=== PATIENT | female | born 1985 ===

== ENCOUNTER 2017-05-07 19:12 | Emergency (ER) | payer OTHER ==
[2017-05-07 19:37] VITALS: BMI 23.7
[2017-05-07 19:43] VITALS: TEMP 99.4
--- NOTE | 2017-05-07 20:22 | ED PDOC ---
Arrival/HPI - General Chief Complaint: Substance Abuse Time Seen by Provider: 05/07/17 20:14 Historian: Patient - History of Present Illness Narrative History of Present Illness (Text): 05/07/17 20:15 31-year-old female presents today brought in by ambulance for heroin overdose. Patient states she used 4 bags of heroin today. Per EMS patient was given intranasal Narcan in the field. pt denies any complaints. states she hasnt used heroin in a week until today. no fever/chills. no abdominal pain. no other complaints. Past Medical History - Provider Review Nursing Documentation Reviewed: Yes - Travel History Have you recently traveled outside [place] w/in the past 3 mons?: No - Infectious Disease Hx of Infectious Diseases: None - Tetanus Immunization Tetanus Immunization: Unknown - Past Medical History Past Medical History: No Previous - Pulmonary Hx Respiratory Disorders: Yes Hx Bronchitis: Yes (11/2013) - Psychiatric Hx Depression: No Hx Emotional Abuse: No Hx Physical Abuse: No Hx Substance Use: Yes (smoker) - Past Surgical History Past Surgical History: No Previous - Surgical History Hx Tonsillectomy: Yes - Anesthesia Hx Anesthesia: Yes Hx Anesthesia Reactions: No Hx Malignant Hyperthermia: No - Suicidal Assessment Feels Threatened In Home Enviroment: No Family/Social History - Physician Review Nursing Documentation Reviewed: Yes Family/Social History: Unknown Family HX Smoking Status: Current Some Days Smoker Hx Alcohol Use: Yes Hx Substance Use: Yes (smoker) Hx Substance Use Treatment: Yes Allergies/Home Meds Allergies/Adverse Reactions: Allergies No Known Allergies Allergy (Verified 11/27/13 16:45) Home Medications: Home Meds Medication Instructions Recorded Confirmed No Known Home Med [No Known Home 07/16/14 07/16/14 Med] Review of Systems - Review of Systems Constitutional: absent: Fatigue, Fevers Respiratory: absent: SOB, Cough, Sputum Cardiovascular: absent: Chest Pain, Palpitations Gastrointestinal: absent: Abdominal Pain, Nausea, Vomiting Genitourinary Female: absent: Dysuria Musculoskeletal: absent: Arthralgias, Back Pain, Neck Pain Skin: absent: Rash, Pruritis Neurological: absent: Headache, Dizziness Psychiatric: absent: Anxiety, Depression, Suicidal Ideation Physical Exam Vital Signs Reviewed: Yes Vital Signs Temp Pulse Resp BP Pulse Ox 05/07/17 20:38 80 20 141/91 H 100 05/07/17 19:15 99.4 F 122 H 16 139/99 H 98 Temperature: Afebrile Blood Pressure: Normal Pulse: Tachycardic Respiratory Rate: Normal Appearance: Positive for: Well-Appearing, Non-Toxic, Comfortable Pain Distress: None Mental Status: Positive for: Alert and Oriented X 3, Agitated - Systems Exam Head: Present: Atraumatic Mouth: Present: Moist Mucous Membranes Neck: Present: Normal Range of Motion Respiratory/Chest: Present: Clear to Auscultation, Good Air Exchange. No: Respiratory Distress, Accessory Muscle Use Cardiovascular: Present: Regular Rate and Rhythm, Normal S1, S2. No: Murmurs Abdomen: No: Tenderness, Rebound, Guarding Upper Extremity: Present: Normal ROM Lower Extremity: Present: Normal ROM Neurological: Present: GCS=15, Speech Normal Skin: Present: Warm, Dry Psychiatric: Present: Alert, Oriented x 3 Medical Decision Making ED Course and Treatment: 05/07/17 20:23 31yr old female presents today with substance abuse. given intranasal narcan in the field. pt alert and oriented. no distress. ambulating with steady gait. pt was observed in the Er; vitals stable. alert and oriented; ambulating with steady gait. Patient verbalizes understanding of discharge instructions and need for immediate followup. advised f/u with pmd. advised avoiding drug use. no other complaints. all aspects of this case were discussed the attending of record. Impression: Substance abuse Increase fluids Follow-up with primary care physician within the next 2 days Return if symptoms worsen or persist or if new concerning symptoms develop Disposition/Present on Arrival - Present on Arrival Any Indicators Present on Arrival: No History of DVT/PE: No History of Uncontrolled Diabetes: No Urinary Catheter: No History of Decub. Ulcer: No History Surgical Site Infection Following: None - Disposition Have Diagnosis and Disposition been Completed?: Yes Diagnosis: Substance abuse Disposition: HOME/ ROUTINE Disposition Time: 20:50 Patient Plan: Discharge Condition: GOOD Additional Instructions: Increase fluids Follow-up with primary care physician within the next 2 days Return if symptoms worsen or persist or if new concerning symptoms develop Referrals: Emelia Olvera MD [Staff Provider] - Follow up with primary
[2017-05-07 20:39] VITALS: BP 141/91; PULSE 80; RESP 20; O2SAT 100
== END 2017-05-07 20:46 | disposition home or self-care (01) ==
LOC: ED 19:12
DX: F19.10 Other psychoactive substance abuse, uncomplicated (principal)

== ENCOUNTER 2017-05-08 23:52 | Emergency (ER) | payer OTHER ==
[2017-05-08 23:54] VITALS: BMI 26.9
[2017-05-09 00:01] VITALS: TEMP 98.5
--- NOTE | 2017-05-09 00:28 | ED PDOC ---
Arrival/HPI - General Chief Complaint: Substance Abuse Time Seen by Provider: 05/08/17 23:57 Historian: Patient - History of Present Illness Narrative History of Present Illness (Text): 05/09/17 00:24 Betina Pryor is a 31 year old female who presents to the emergency department via ambulance for evaluation following substance abuse. States she used heroin and Xanax earlier today. Patient was given narcan en route. She was seen yesterday at [facility] for heroin overdose. On arrival, patient is alert and orientedX3. Denies any psychiatric or somatic complaints. Time/Duration: Prior to Arrival Symptom Onset: Sudden Activities at Onset: Light Context: Home Past Medical History - Provider Review Nursing Documentation Reviewed: Yes - Infectious Disease Hx of Infectious Diseases: None - Tetanus Immunization Tetanus Immunization: Unknown - Past Medical History Past Medical History: No Previous - Pulmonary Hx Respiratory Disorders: Yes Hx Bronchitis: Yes (11/2013) - Psychiatric Hx Depression: No Hx Emotional Abuse: No Hx Physical Abuse: No Hx Substance Use: Yes (smoker) - Past Surgical History Past Surgical History: No Previous - Surgical History Hx Tonsillectomy: Yes - Anesthesia Hx Anesthesia: Yes Hx Anesthesia Reactions: No Hx Malignant Hyperthermia: No - Suicidal Assessment Feels Threatened In Home Enviroment: No Family/Social History - Physician Review Nursing Documentation Reviewed: Yes Family/Social History: No Known Family HX Smoking Status: Current Some Days Smoker Hx Alcohol Use: Yes Hx Substance Use: Yes (smoker) Hx Substance Use Treatment: Yes Allergies/Home Meds Allergies/Adverse Reactions: Allergies No Known Allergies Allergy (Verified 11/27/13 16:45) Home Medications: Home Meds Medication Instructions Recorded Confirmed No Known Home Med [No Known Home 07/16/14 05/09/17 Med] Review of Systems - Physician Review All systems were reviewed & negative as marked: Yes - Review of Systems Constitutional: Normal. absent: Fatigue, Fevers Respiratory: Normal. absent: SOB, Cough, Sputum Cardiovascular: Normal. absent: Chest Pain, Palpitations Gastrointestinal: Normal. absent: Abdominal Pain, Constipation, Diarrhea, Nausea Psychiatric: Other (heroin and Xanax use. ). absent: Suicidal Ideation Physical Exam Vital Signs Reviewed: Yes Vital Signs Temp Pulse Resp BP Pulse Ox 05/09/17 01:03 105 H 16 117/85 97 05/08/17 23:58 98.5 F 98 H 14 136/94 H 100 Temperature: Afebrile Blood Pressure: Normal Pulse: Tachycardic Respiratory Rate: Normal Appearance: Positive for: Well-Appearing, Non-Toxic, Comfortable Pain Distress: None Mental Status: Positive for: Alert and Oriented X 3 - Systems Exam Head: Present: Atraumatic, Normocephalic Pupils: Present: PERRL Extroacular Muscles: Present: EOMI Conjunctiva: Present: Normal Mouth: Present: Moist Mucous Membranes Neck: Present: Normal Range of Motion Respiratory/Chest: Present: Clear to Auscultation, Good Air Exchange. No: Respiratory Distress, Accessory Muscle Use Cardiovascular: Present: Regular Rate and Rhythm, Normal S1, S2. No: Murmurs Abdomen: Present: Normal Bowel Sounds. No: Tenderness, Distention, Peritoneal Signs Upper Extremity: Present: Normal Inspection. No: Cyanosis, Edema Lower Extremity: Present: Normal Inspection. No: Edema Neurological: Present: GCS=15, CN II-XII Intact, Speech Normal, Motor Func Grossly Intact, Normal Sensory Function Skin: Present: Warm, Dry, Normal Color. No: Rashes Psychiatric: Present: Alert, Oriented x 3 Medical Decision Making ED Course and Treatment: 05/09/17 00:30 Impression: A 31 year old female who presents to the emergency department following heroin and Xanax use. Patient is alert, Oriented X3 and denies any complaints. Plan: -- EKG -- Reassess and disposition Progress Notes: 05/09/17 00:32 EKG reviewed: NSR @ 115 bpm. 05/09/17 00:56 Patient is alert, oriented and in no acute distress. Patient is ambulatory with steady gain in the emergency department. Patient verbalizes understanding of discharge instruction and the need for immediate follow up. Advised to f/u with PMD and present to Emergency department for worsening symptoms. Advised to refrain for any substance use. Re-evaluation Time: 00:55 Reassessment Condition: Re-examined, Improved - Scribe Statement The provider has reviewed the documentation as recorded by the Chin Noonan Provider Attestation: Provider Scribe Attestation: All medical record entries made by the Scribe were at my direction and personally dictated by me. I have reviewed the chart and agree that the record accurately reflects my personal performance of the history, physical exam, medical decision making, and the department course for this patient. I have also personally directed, reviewed, and agree with the discharge instructions and disposition. Disposition/Present on Arrival - Present on Arrival Any Indicators Present on Arrival: No History of DVT/PE: No History of Uncontrolled Diabetes: No Urinary Catheter: No History of Decub. Ulcer: No History Surgical Site Infection Following: None - Disposition Have Diagnosis and Disposition been Completed?: Yes Diagnosis: Heroin abuse Disposition: HOME/ ROUTINE Disposition Time: 01:00 Condition: GOOD Discharge Instructions (ExitCare): Narcotic Abuse (ED) Referrals: [facility] [Outside] - Follow up with primary
[2017-05-09 01:04] VITALS: BP 117/85; PULSE 105; RESP 16; O2SAT 97
--- NOTE | 2017-05-09 15:59 | CARD ---
APPROVED REPORT EKG Measurement Heart [id number] <Conclusion> Sinus tachycardia Abnormal ECG
== END 2017-05-09 01:06 | disposition home or self-care (01) ==
LOC: ED 23:52
DX: F11.10 Opioid abuse, uncomplicated (principal)